=== PATIENT | male | born 1955 | race Asian ===

== ENCOUNTER → 2019-08-24 | Emergency (ER) | payer OTHER ==
[~2019-08-24] VITALS: Ht 182.9 cm; Wt 89.4 kg
[~2019-08-24] MED LIST: ACID CONTROL10 MG PO; ACID REDUCER150 M1 PO; ACID REDUCER20.6 MG PO; ANTI-DIARRHE2 M1 PO; ARIPIPRAZOLE10 MG PO; ASPIR-8181 MG PO; ATOR10TA3 PO; B-12 TR1000 MCG PO; BENZ1TAB43 PO; BENZTROPINE0.5 MG PO; BUSPIRONE HYDR7.5 MG PO; CARV3.12 PO; COZAAR25 MG PO; DIPH25CA90 PO; DIVALPROEX500 M1 PO; DOCU100C10 PO; ENEMA READY-TO-1 ENE RE; FERROUS SULF325 M1 PO; GABA300C2 PO; GAS RELIEF80 MG PO; GERI-LANTA PO; GUAIFENESIN DM PO; HALO5INJ3 IM; HYDR10TA47 PO; HYDR25TA57 PO; HYDR5TAB9 PO; HYDRALAZINE50 MG PO; IMODIUM A-D PO; KP FOLIC ACID1 MG PO; LANOXIN 0.120.125 M1 PO; LEVEMIR FL100 UNIT/M SC; LEVO0.0529 PO; LIPITOR20 MG PO; LORA0.5T17 PO; LOSA50TA PO; LYRICA75 MG PO; MAGNSOL PO; MAGNSUS68 PO; METAMUCIL0.52 GM PO; METF100038 PO; OLANZAPINE10 M3 IM; OXCARBAZEPIN300 MG PO; PANTOPRAZOLE 40MG TA PO; REFRESH TEARS0.5 % OP; RYBELSUS3 MG PO; RYBELSUS7 MG PO; TEMA15CA19 PO; TIZA4TAB5 PO; TORSEMIDE20 MG PO; TRAM50TA PO; TRAZ100T PO; TRAZ50TA36 PO; TUSSIN ADU100 MG/5 M PO; TYLENOL325 MG PO; XALATAN0.005 % OP; ZIPR20CA PO; ZIPR80CA PO; ZYPREXA ZYDI10 MG PO; [UNRECOGNIZED DRUG - OTHER] PO
[2019-08-24 21:43] LABS: PLATELET COUNT 587 K/uL (142-355)
[2019-08-24 22:07] LABS: POTASSIUM 4.5 mmol/L (3.6-5.2)
[2019-08-24 22:15] VITALS: BP 114/62; TEMP 98.7
== END ==
LOC: ED 20:51
PROVIDERS: Hospitalist
DX: F20.89 Other schizophrenia (principal); R46.89 Other symptoms and signs involving appearance and behavior; Z91.19 Patient's noncompliance with other medical treatment and regimen; Z79.899 Other long term (current) drug therapy; Z11.59 Encounter for screening for other viral diseases; Z04.6 Encounter for general psychiatric examination, requested by authority
CPT/HCPCS: 36415; 80053; 80162; 85027; 87635; 93005; 96372; 99283; J0696; U0002

== ENCOUNTER 2019-11-29 21:11 | Emergency (ER) | payer OTHER ==
[~2019-11-29] VITALS: Ht 182.9 cm; Wt 95.3 kg
[~2019-11-29 21:11] MED LIST changes: +BUSP15TAB2 PO
[2019-11-29 21:57] LABS: POTASSIUM 3.4 mmol/L (3.6-5.2)
[2019-11-29 21:59] LABS: PLATELET COUNT 278 K/uL (142-355)
[2019-11-29 22:44] VITALS: BP 152/84; TEMP 98.1
[2019-11-30] MEDS ORDERED: ABILIFY20 MG PO (02:11)
[2019-11-30] MEDS ORDERED: ASPIRIN DR81 MG PO (02:15)
[2019-11-30] MEDS ORDERED: IBU800 MG PO (02:17)
[2019-11-30] MEDS ORDERED: TRULICITY0.75 MG/0. SC (02:23)
[2019-11-30] MEDS ORDERED: ZINC220C4 PO (02:26)
== END 2019-11-29 22:45 | disposition other institution (70) ==
LOC: ED 21:11
PROVIDERS: Emergency Medicine
DX: F28 Other psychotic disorder not due to a substance or known physiological condition (principal); Z11.59 Encounter for screening for other viral diseases; Z04.6 Encounter for general psychiatric examination, requested by authority
CPT/HCPCS: 80053; 85027; 87635; 93005; 99283; G2023; U0003

== ENCOUNTER 2019-12-01 16:55 | Inpatient (IN) | payer OTHER ==
[~2019-12-01] VITALS: Ht 182.9 cm; Wt 97.3 kg
[2019-12-01] VITALS (13 sets, daily range): BP systolic 79–105; BP diastolic 52–74; TEMP 91.6–93.3; Ht 182.9 cm; Wt 97.3 kg
[~2019-12-01 16:55] MED LIST changes: +ABILIFY20 MG PO; +ASPIRIN DR81 MG PO; +IBU800 MG PO; +TRULICITY0.75 MG/0. SC; +ZINC220C4 PO
[2019-12-02] VITALS (47 sets, daily range): BP systolic 75–134; BP diastolic 45–86; TEMP 94.4–99.8
[2019-12-02 07:56] LABS: PLATELET COUNT 210 K/uL (142-355)
[2019-12-02 07:59] LABS: POTASSIUM 2.8 mmol/L (3.6-5.2)
== END 2019-12-02 17:50 | disposition short-term general hospital (02) | DRG 193 ==
LOC: ICU 16:55
PROVIDERS: ADMIT Internal Medicine
DX: J18.8 Other pneumonia, unspecified organism (principal); R65.21 Severe sepsis with septic shock; I13.0 Hypertensive heart and chronic kidney disease with heart failure and stage 1 through stage 4 chronic kidney disease, or unspecified chronic kidney disease; N18.4 Chronic kidney disease, stage 4 (severe); G40.802 Other epilepsy, not intractable, without status epilepticus; E03.8 Other specified hypothyroidism; T68.XXXA Hypothermia, initial encounter; I95.89 Other hypotension; E11.22 Type 2 diabetes mellitus with diabetic chronic kidney disease; I50.89 Other heart failure; I48.91 Unspecified atrial fibrillation; E87.6 Hypokalemia; E11.42 Type 2 diabetes mellitus with diabetic polyneuropathy; K21.9 Gastro-esophageal reflux disease without esophagitis; F20.9 Schizophrenia, unspecified
CPT/HCPCS: 36600; 80053; 82533; 82805; 83605; 83735; 83880; 85027; 87635; 94640; 94664; 94760; J0515; J1650; J1720; J1815; J2543; J3370; J3490; U0003